=== PATIENT | female | born 1965 | race Caucasian/White ===

== ENCOUNTER 2019-04-16 22:52 | Emergency (ER) | payer OTHER ==
[2019-04-16] MEDS: DIAZEPAM 5 MG TAB PO (23:25)
== END 2019-04-17 05:21 | disposition home or self-care (01) ==
LOC: E/R 22:52
DX: G56.02 Carpal tunnel syndrome, left upper limb (principal)
CPT/HCPCS: 29125; 70450; 99284-25